=== PATIENT | male | born 1960 | race Caucasian/White ===

== ENCOUNTER 2020-03-27 10:16 | Inpatient (IN) | payer MEDICAID ==
[2020-03-27] MEDS ORDERED: Ondansetron 4 MG Tab.DIS PO PRN (15:29)
--- NOTE | 2020-03-27 20:36 | PCM.HP.2 ---
H&P History of Present Illness - General Date of Service: 03/27/20 Admit Problem/Dx: Admission Diagnosis/Problem Admission Diagnosis/Problem Alcoholism Source of Information: Patient, Old Records History Limitations: Reports: No Limitations - History of Present Illness Initial Comments - Free Text/Narative: Santiago is a 60 year old male who was transferred to [facility] here for strengthening with PT. Patient had presented to ER in [place] with complaints of generalized weakness and recent falls. Lipase was high and was noted to have a low potassium. Was jaundiced on admission but CT scan did not show any pancreatic changes but had severe fatty liver disease. Patient was given IV steroids, banana bag with folate and thiamine and kept NPO. Over his stay, lipase did come down, did not ever really have any abdominal pain. Required multiple bags of IV potassium due to a potassium level of 1.8. Hemoglobin was low at 7.5, platelets were as low as 17 but now improved at 63. Patient denies having issues with alcohol withdrawals but admits to still feeling weak. Is incontinent at times. Duration of Symptoms: Reports: Day(s):, Improving Location: Reports: Generalized Associated Symptoms: Reports: Confusion, Headaches, Weakness. Denies: Loss of Appetite, Nausea/Vomiting Bilateral Leg Pain Score (Numeric/FACES): 7 - Related Data Allergies/Adverse Reactions: Allergies Allergy/AdvReac Type Severity Reaction Status Date / Time No Known Allergies Allergy Verified 03/27/20 10:35 Home Medications: Home Meds Acetaminophen 325 mg PO Q4HR PRN 03/27/20 [History] Folic Acid 1 mg PO DAILY 03/27/20 [History] Nicotine [Habitrol] 14 mg TRDERM DAILY PRN 03/27/20 [History] Pantoprazole [ProTONIX] 40 mg PO DAILY 03/27/20 [History] Past Medical History Gastrointestinal History: Reports: Pancreatitis Genitourinary History: Reports: Other (See Below) Other Genitourinary History: L hydrocele Psychiatric History: Reports: Other (See Below) Other Psychiatric History: alcohol abuse Endocrine/Metabolic History: Reports: Hypokalemia, Hypomagnesemia - Past Surgical History GI Surgical History: Reports: Hernia Repair/Other Social & Family History - Tobacco Use Smoking Status *Q: Current Every Day Smoker Years of Tobacco use: 15 Packs/Tins Daily: 1 - Caffeine Use Caffeine Use: Reports: None - Recreational Drug Use Recreational Drug Use: No H&P Review of Systems - Review of Systems: Review Of Systems: See Below General: Reports: Malaise, Weakness, Fatigue HEENT: Denies: Ear Pain, Sinus Congestion, Sore Throat Pulmonary: Denies: Shortness of Breath, Cough Cardiovascular: Reports: Lightheadedness. Denies: Palpitations Gastrointestinal: Denies: Abdominal Pain, Nausea, Vomiting Genitourinary: Reports: Incontinence Musculoskeletal: Reports: No Symptoms Skin: Reports: Jaundice Psychiatric: Reports: Confusion Exam - Exam Exam: See Below - Vital Signs Vital Signs: Last Vital Signs Temp 97.5 F 03/27/20 15:29 Pulse 111 H 03/27/20 15:29 Resp 16 03/27/20 15:29 BP 93/63 03/27/20 15:29 Pulse Ox 100 03/27/20 15:29 Weight: 127 lb 11.2 oz - Exam General: Alert, Oriented (person and place) HEENT: Mucosa Moist & [place], Posterior Pharynx Clear, Scleral Icterus Neck: Supple Lungs: Normal Respiratory Effort, Rhonchi Cardiovascular: Regular Rate, Regular Rhythm GI/Abdominal Exam: Normal Bowel Sounds, Soft, Non-Tender Extremities: Normal Inspection, No Pedal Edema Skin: Warm, Dry, Ecchymosis, Other (jaundice noted) Neuro Extensive - Mental Status: Alert, Disorientation to Time Psychiatric: Alert Sepsis Event Note - Evaluation Sepsis Screening Result: No Definite Risk - Focused Exam Vital Signs: Vital Signs Temp Pulse Resp BP Pulse Ox 03/27/20 15:29 97.5 F 111 H 16 93/63 100 Date Exam was Performed: 03/27/20 Time Exam was Performed: 20:28 - Problem List (1) Alcoholism SNOMED Code(s): 4013087 ICD Code: F10.20 - ALCOHOL DEPENDENCE, UNCOMPLICATED Status: Acute Priority: High Current Visit: Yes (2) Weakness SNOMED Code(s): 48399854 ICD Code: R53.1 - WEAKNESS Status: Acute Priority: High Current Visit: Yes (3) Anemia SNOMED Code(s): 709429480 ICD Code: D64.9 - ANEMIA, UNSPECIFIED Status: Acute Priority: High Current Visit: Yes Problem List Initiated/Reviewed/Updated: Yes Orders Last 24hrs: Active Orders 24 hr Category Date Time Status Patient Status [ADT] Routine ADT 03/27/20 15:29 Active Antiembolic Devices [RC] 1000,2200 Care 03/27/20 18:30 Active Oxygen Therapy [RC] .PRN Care 03/27/20 15:29 Active Up With Assistance [RC] .PRN Care 03/27/20 15:29 Active Vital Signs [RC] 0800,2000 Care 03/27/20 15:29 Active Consult to Physical Therapy [PT Evaluation and Cons 03/27/20 15:33 Active Treatment] [CONS] Routine Regular Diet [DIET] Diet 03/27/20 Dinner Active Acetaminophen [Tylenol] Med 03/27/20 15:34 Active 325 mg PO Q4H PRN Folic Acid Med 03/28/20 08:00 Active 1 mg PO DAILY Nicotine [Habitrol] Med 03/28/20 08:00 Active 14 mg TRDERM DAILY Ondansetron [Zofran ODT] Med 03/27/20 15:29 Active 4 mg PO Q4H PRN Pantoprazole [ProTONIX] Med 03/28/20 07:00 Active 40 mg PO DAILY@0700 Resuscitation Status Routine Resus Stat 03/27/20 15:29 Ordered Medication Orders Acetaminophen (Tylenol) 325 mg PO Q4H PRN PRN Reason: Pain/Fever Folic Acid (Folic Acid) 1 mg PO DAILY [facility] Nicotine (Habitrol) 14 mg TRDERM DAILY [facility] Ondansetron HCl (Zofran Odt) 4 mg PO Q4H PRN PRN Reason: nausea, able to take PO Pantoprazole Sodium (Protonix) 40 mg PO DAILY@0700 [facility] Assessment/Plan Comment:: Patient admitted swing bed for rehab by physical therapy, lab monitoring. - Mortality Measure Prognosis:: Good
[2020-03-28] MEDS: Pantoprazole 40 MG Tab.CR PO SCH (06:09)
[2020-03-28] MEDS: Folic Acid 1 MG Tab PO SCH (07:32)
[2020-03-28] MEDS: Nicotine 14 MG/24 Hr Patch TRDERM SCH (07:32)
[2020-03-28] MEDS: Acetaminophen 325 MG Tab PO PRN (15:13)
[2020-03-29] MEDS: Pantoprazole 40 MG Tab.CR PO SCH (06:21)
[2020-03-29] MEDS: Folic Acid 1 MG Tab PO SCH (07:58)
[2020-03-29] MEDS: Nicotine 14 MG/24 Hr Patch TRDERM SCH (07:58)
[2020-03-29] MEDS: Acetaminophen 325 MG Tab PO PRN (09:57)
[2020-03-29] MEDS ORDERED: Calcium Carbonate 500 MG Tab.Chew PO PRN (19:56)
[2020-03-30] MEDS ORDERED: 50% Dextrose in Water 50 ML Syringe ONE (04:02)
[2020-03-30] MEDS: Pantoprazole 40 MG Tab.CR PO SCH (07:55)
[2020-03-30] MEDS: Nicotine 14 MG/24 Hr Patch TRDERM SCH (07:55)
[2020-03-30] MEDS: Folic Acid 1 MG Tab PO SCH (07:55)
[2020-03-31] MEDS: Nicotine 14 MG/24 Hr Patch TRDERM SCH (07:37)
[2020-03-31] MEDS: Pantoprazole 40 MG Tab.CR PO SCH (07:37)
[2020-03-31] MEDS: Folic Acid 1 MG Tab PO SCH (07:37)
[2020-03-31 07:53] LABS: CHLORIDE,CL 106 mEq/L (98-106); SODIUM,NA 141 mEq/L (136-145)
[2020-04-01] MEDS: Nicotine 14 MG/24 Hr Patch TRDERM SCH (07:50)
[2020-04-01] MEDS: Pantoprazole 40 MG Tab.CR PO SCH (07:52)
[2020-04-01] MEDS: Folic Acid 1 MG Tab PO SCH (07:52)
[2020-04-01] MEDS: Acetaminophen 325 MG Tab PO PRN (07:52)
[2020-04-02] MEDS: Nicotine 14 MG/24 Hr Patch TRDERM SCH (07:27)
[2020-04-02] MEDS: Pantoprazole 40 MG Tab.CR PO SCH (07:27)
[2020-04-02] MEDS: Folic Acid 1 MG Tab PO SCH (07:27)
[2020-04-03] MEDS: Pantoprazole 40 MG Tab.CR PO SCH (06:51)
[2020-04-03] MEDS: Nicotine 14 MG/24 Hr Patch TRDERM SCH (07:25)
[2020-04-03] MEDS: Folic Acid 1 MG Tab PO SCH (07:27)
[2020-04-03] MEDS: Acetaminophen 325 MG Tab PO PRN (07:27)
[2020-04-04] MEDS: Pantoprazole 40 MG Tab.CR PO SCH (06:32)
[2020-04-04] MEDS: Nicotine 14 MG/24 Hr Patch TRDERM SCH (07:31)
[2020-04-04] MEDS: Folic Acid 1 MG Tab PO SCH (07:31)
[2020-04-04] MEDS ORDERED: Albuterol/Ipratropium 3.0-0.5 MG/3 ML Neb Soln NEB PRN (08:19)
[2020-04-04] MEDS: Acetaminophen 325 MG Tab PO PRN (16:13)
[2020-04-05] MEDS: Pantoprazole 40 MG Tab.CR PO SCH (06:11)
[2020-04-05] MEDS: Folic Acid 1 MG Tab PO SCH (07:34)
[2020-04-05] MEDS: Nicotine 14 MG/24 Hr Patch TRDERM SCH (07:35)
[2020-04-06] MEDS: Pantoprazole 40 MG Tab.CR PO SCH (07:34)
[2020-04-06] MEDS: Nicotine 14 MG/24 Hr Patch TRDERM SCH (07:35)
[2020-04-06] MEDS: Folic Acid 1 MG Tab PO SCH (07:35)
[2020-04-06] MEDS: Acetaminophen 325 MG Tab PO PRN (10:55)
[2020-04-07] MEDS: Pantoprazole 40 MG Tab.CR PO SCH (06:41)
[2020-04-07] MEDS: Nicotine 14 MG/24 Hr Patch TRDERM SCH (07:28)
[2020-04-07] MEDS: Folic Acid 1 MG Tab PO SCH (07:29)
[2020-04-08] MEDS: Pantoprazole 40 MG Tab.CR PO SCH (07:52)
[2020-04-08] MEDS: Nicotine 14 MG/24 Hr Patch TRDERM SCH (07:52)
[2020-04-08] MEDS: Folic Acid 1 MG Tab PO SCH (07:52)
[2020-04-09] MEDS: Pantoprazole 40 MG Tab.CR PO SCH (06:46)
[2020-04-09] MEDS: Folic Acid 1 MG Tab PO SCH (07:32)
[2020-04-09] MEDS: Nicotine 14 MG/24 Hr Patch TRDERM SCH (07:33)
[2020-04-10] MEDS: Pantoprazole 40 MG Tab.CR PO SCH (06:40)
[2020-04-10] MEDS: Folic Acid 1 MG Tab PO SCH (07:42)
[2020-04-10] MEDS: Nicotine 14 MG/24 Hr Patch TRDERM SCH (07:42)
[2020-04-11] MEDS: Nicotine 14 MG/24 Hr Patch TRDERM SCH (07:07)
[2020-04-11] MEDS: Folic Acid 1 MG Tab PO SCH (07:08)
[2020-04-11] MEDS: Pantoprazole 40 MG Tab.CR PO SCH (07:08)
[2020-04-12] MEDS: Pantoprazole 40 MG Tab.CR PO SCH (06:50)
[2020-04-12] MEDS: Nicotine 14 MG/24 Hr Patch TRDERM SCH (07:31)
[2020-04-12] MEDS: Folic Acid 1 MG Tab PO SCH (07:31)
[2020-04-13] MEDS: Pantoprazole 40 MG Tab.CR PO SCH (06:27)
[2020-04-13] MEDS: Folic Acid 1 MG Tab PO SCH (07:39)
[2020-04-13] MEDS: Nicotine 14 MG/24 Hr Patch TRDERM SCH (07:39)
[2020-04-14] MEDS: Pantoprazole 40 MG Tab.CR PO SCH (06:51)
[2020-04-14] MEDS: Nicotine 14 MG/24 Hr Patch TRDERM SCH (07:54)
[2020-04-14] MEDS: Folic Acid 1 MG Tab PO SCH (07:55)
[2020-04-15] MEDS: Pantoprazole 40 MG Tab.CR PO SCH (07:03)
[2020-04-15] MEDS: Folic Acid 1 MG Tab PO SCH (07:22)
[2020-04-15] MEDS: Nicotine 14 MG/24 Hr Patch TRDERM SCH (07:22)
[2020-04-16] MEDS: Pantoprazole 40 MG Tab.CR PO SCH (06:48)
--- NOTE | 2020-04-16 07:26 | PCM.DCSUM1 ---
Discharge Summary - Hospital Course Free Text/Narrative:: Patient admitted her to swing bed following a stay in [place] for weakness and falls. History of alcoholism and frequent falls. Was jaundiced on admission with a high lipase. Ct scan was done which did not show any evidence of pancreatitis but severe fatty liver disease. Also noted to have a potassium of 1.8. Received a banana with thiamine and multiple IV potassium replacement bags. Platelets and hemoglobin were low, platelets as low as 17 but had responded well to treatment and were in the 60s by transfer here. Patient unable to care for self due to weakness and incontinence. Transferred here for physical therapy and nursing care. Diagnosis: Stroke: No Modified Earl Scale: No Symptoms at All Modified [place] Scale Score: 0 - Discharge Data Discharge Date: 04/16/20 Discharge Disposition: Home, W Home Health Agency 06 Condition: Fair - Referral to Home Health Date of Face to Face Encounter: 04/16/20 Reason for Homebound Status: Patient is homebound, unable to drive, due to weakness Primary Care Physician: PCP Unknown Skilled Need: Nursing to monitor blood pressure, med compliance, evaluate lung sounds. Physical therapy and occupational therapy for strengthening, ADLs. - Discharge Diagnosis/Problem(s) (1) Alcoholism SNOMED Code(s): 6746210 ICD Code: F10.20 - ALCOHOL DEPENDENCE, UNCOMPLICATED Status: Acute Priority: High (2) Weakness SNOMED Code(s): 89955264 ICD Code: R53.1 - WEAKNESS Status: Acute Priority: High (3) Anemia SNOMED Code(s): 419378931 ICD Code: D64.9 - ANEMIA, UNSPECIFIED Status: Acute Priority: High - Patient Summary/Data Complications: none Consults: Consultations 03/27/20 15:33 Consult to Physical Therapy [PT Evaluation and Treatment] [CONS] Routine Hospital Course: Patient is doing well. Ambulating per self to and from bathroom. Walking in halls with PT. Minimal issues now with incontinence. Has tolerated stay without any DTs. Eating well. States is feeling much stronger now. Will receive home health for ongoing med management, home safety and PT/OT for strengthening. - Patient Instructions Diet: Usual Diet as Tolerated Activity: As Tolerated - Discharge Plan *PRESCRIPTION DRUG MONITORING PROGRAM REVIEWED*: No *COPY OF PRESCRIPTION DRUG MONITORING REPORT IN PATIENT JAYNE: No Prescriptions/Med Rec: Albuterol/Ipratropium [DuoNeb 3.0-0.5 MG/3 ML] 3 ml NEB Q4H PRN 30 Days #1 box PRN Reason: Dyspnea Home Medications: Home Meds Acetaminophen 325 mg PO Q4HR PRN 03/27/20 [History] Folic Acid 1 mg PO DAILY 03/27/20 [History] Nicotine [Habitrol] 14 mg TRDERM DAILY PRN 03/27/20 [History] Pantoprazole [ProTONIX] 40 mg PO DAILY 03/27/20 [History] Albuterol/Ipratropium [DuoNeb 3.0-0.5 MG/3 ML] 3 ml NEB Q4H PRN 30 Days #1 box 04/16/20 [Rx] - Discharge Summary/Plan Comment DC Time >30 min.: No - General Info Date of Service: 04/16/20 Admission Dx/Problem (Free Text: Admission Diagnosis/Problem Admission Diagnosis/Problem Alcoholism Functional Status: Reports: Pain Controlled, Tolerating Diet, Ambulating - Review of Systems General: Reports: Weakness. Denies: Fatigue, Malaise HEENT: Reports: No Symptoms Pulmonary: Denies: Shortness of Breath, Cough Cardiovascular: Denies: Chest Pain, Edema, Lightheadedness Gastrointestinal: Denies: Abdominal Pain, Nausea, Vomiting Genitourinary: Reports: No Symptoms Musculoskeletal: Reports: No Symptoms Skin: Reports: No Symptoms Neurological: Reports: Weakness - Patient Data Vitals - Most Recent: Last Vital Signs Temp 97.8 F 04/15/20 18:58 Pulse 96 04/15/20 18:58 Resp 16 04/15/20 18:58 BP 103/75 04/15/20 18:58 Pulse Ox 96 04/15/20 18:58 Weight - Most Recent: 130 lb 8 oz Med Orders - Current: Current Medications Acetaminophen (Tylenol) 325 mg PO Q4H PRN PRN Reason: Pain/Fever Last Admin: 04/06/20 10:55 Dose: 325 mg Documented by: Albuterol/Ipratropium (Duoneb 3.0-0.5 Mg/3 Ml) 3 ml NEB Q4H PRN PRN Reason: Dyspnea Last Admin: 04/04/20 10:26 Dose: 3 ml Documented by: Calcium Carbonate/Glycine (Tums) 500 mg PO QID PRN PRN Reason: Dyspepsia Last Admin: 03/29/20 20:31 Dose: 500 mg Documented by: Folic Acid (Folic Acid) 1 mg PO DAILY COUNT INCLUDES THE [facility] Last Admin: 04/15/20 07:22 Dose: 1 mg Documented by: Nicotine (Habitrol) 14 mg TRDERM DAILY COUNT INCLUDES THE [facility] Last Admin: 04/15/20 07:22 Dose: 14 mg Documented by: Ondansetron HCl (Zofran Odt) 4 mg PO Q4H PRN PRN Reason: nausea, able to take PO Pantoprazole Sodium (Protonix) 40 mg PO DAILY@0700 COUNT INCLUDES THE [facility] Last Admin: 04/16/20 06:48 Dose: 40 mg Documented by: Discontinued Medications Dextrose/Water (Dextrose 50% In Water) Confirm Administered Dose 50 ml .ROUTE .[place]-MED ONE Stop: 03/30/20 04:03 Last Admin: 03/30/20 07:55 Dose: Not Given Documented by: - Exam General: Reports: Alert, Oriented HEENT: Reports: Mucous Membr. Moist/[place]: Reports: Supple Lungs: Reports: Clear to Auscultation, Normal Respiratory Effort Cardiovascular: Reports: Regular Rate, Regular Rhythm GI/Abdominal Exam: Normal Bowel Sounds, Soft, Non-Tender Extremities: Normal Inspection, No Pedal Edema Skin: Reports: Warm, Dry Neurological: Reports: No New Focal Deficit
[2020-04-16] MEDS: Folic Acid 1 MG Tab PO SCH (07:34)
[2020-04-16] MEDS: Nicotine 14 MG/24 Hr Patch TRDERM SCH (07:34)
== END 2020-04-16 09:40 | disposition home health service (06) | DRG 948 ==
LOC: UNDOADMIN 15:06 → CC.MS 15:06 → UNDOADMIN 15:29 → CC.MS 15:29
PROVIDERS: ADMIT Family Medicine; ATTEND Family Medicine
DX: R53.1 Weakness (principal); F10.20 Alcohol dependence, uncomplicated; D64.9 Anemia, unspecified; R29.6 Repeated falls; K76.0 Fatty (change of) liver, not elsewhere classified; E87.6 Hypokalemia; F17.210 Nicotine dependence, cigarettes, uncomplicated; E83.42 Hypomagnesemia; Z79.899 Other long term (current) drug therapy
CPT/HCPCS: 36415; 80053; 83735; 85025; 94640; 97110-GP; 97112-GP; 97116-GP; 97161-GP; A9270-GY; J7620-GY